=== PATIENT | male | born 2000 | race Caucasian/White ===

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

== ENCOUNTER 2023-12-28 00:30 | Emergency (ER) | payer OTHER ==
[2023-12-28] MEDS: Take Home: Amoxicillin/Clavulanate K 875-125 MG Tab, 2 Tab Pack PO ONE (00:43)
== END 2023-12-28 01:00 | disposition home or self-care (01) ==
LOC: CC.ED 00:30
DX: H66.91 Otitis media, unspecified, right ear (principal); F17.200 Nicotine dependence, unspecified, uncomplicated
CPT/HCPCS: 99283; A9270-GY